=== PATIENT | male | born 1960 | race Asian ===

== ENCOUNTER 2023-10-23 14:38 | Outpatient (AMB) | payer OTHER, SELFPAY ==
--- NOTE | 2023-10-23 14:44 | A.OFFVIS_ITS ---
Intake Visit Reasons: urinary frequency Intake Note: NEW Patient presents today to established treatment for Urinary Frequency: Meds- None Allergies to Antibiotic- No Known Allergies Blood Thinner- None Nail Making Machine Setter Required: No Accompanied by: Self / Same As Patient Allergies tolterodine Allergy (Mild, Verified 10/23/23 15:09) Dry mouth metformin Adverse Reaction (Mild, Verified 10/23/23 15:08) Diarrhea empagliflozin [From Jardiance] Adverse Reaction (Verified 10/23/23 15:09) UTI'S HPI Comments Details: Sha is a 63 year old male who is here as a new patient evaluation for LUTS frequency, urgency, denies dysuria, denies hematuria. He states he has had these symptoms for over 20 years. He states he is not sure if anxiety or stress would exacerbate his symptoms. UA - leuk neg, blood neg. Bladder scan PVR 14 mL Instructed to avoid dietary irritants. Trial Myrbetriq. Renal US [facility] Medical History (Updated 11/25/23 @ 01:57 by Rich Talbot MD) Anemia Elevated liver enzymes HTN (hypertension) Pure hypercholesterolemia Chronic kidney disease Type 2 diabetes mellitus Surgical History (Updated 10/23/23 @ 14:52 by EVETTE Winters) No pertinent past surgical history Family History (Updated 10/23/23 @ 15:14 by EVETTE Winters) Father No problems noted. Mother No problems noted. Social History (Updated 10/23/23 @ 14:52 by EVETTE Winters) Alcohol intake: current Alcohol intake frequency: holidays/special occasions o nly Patient Tobacco Use Status: Never used Tobacco Review of Systems Const All systems reviewed & are unremarkable except as noted in HPI and below Reports no additional complaints Eyes Reports no additional complaints ENT Reports no additional complaints Card Reports no additional complaints Resp Reports no additional complaints GI Reports no additional complaints Reports as per HPI Musc Reports no additional complaints Skin/Breast Reports system reviewed and no additional complaints, except as documented Neuro Reports no additional complaints Psych Reports no additional complaints Endo Reports no additional complaints Patrick/Lymph Reports no additional complaints Aller/Immun Reports no additional complaints Physical Exam Const General: cooperative, healthy appearing and no acute distress Orientation/consciousness: patient oriented x3 HEENT Head: Yes normal to inspection, Yes normocephalic and Yes atraumatic Eyes Conjunctivae: conjunctivae normal Neck Neck: Yes normal visual inspection and Yes trachea midline Chest Chest palpation & inspection: normal inspection of the chest Resp Effort & Inspection: normal respiratory effort Cardio Rate: regular rate GI Inspection: Yes normal to inspection Skin General skin exam: no rashes or lesions noted Neuro General: patient oriented x3 Extrem General: No edema Psych Appearance: grossly normal Office Procedures Post Void Residual Post Residual Void Post Void Residual (PVR): 14 [id number] Void Residual by ultrasound Results AMB Urinalysis, Automated UA Leukoctes 0 Tanya/uL Last Edit by EVETTE Winters on 10/23/23 15:05 UA Nitrite Negative Last Edit by EVETTE Winters on 10/23/23 15:05 UA Urobilinogen 0.2 mg/dL Last Edit by EVETTE Winters on 10/23/23 15:0 5 UA Protein 15 mg/dL Last Edit by EVETTE Winters on 10/23/23 15:05 UA pH 6.0 Last Edit by EVETTE Winters on 10/23/23 15:05 UA Blood 0 Florentino/uL Last Edit by EVETTE Winters on 10/23/23 15:05 UA Specific [place] 1.015 Last Edit by EVETTE Winters on 10/23/23 15: 05 UA Ketone Positive Last Edit by EVETTE Winters on 10/23/23 15:05 5 mg/dL Ambrocio Heck 10/23/23 15:05 UA Bilirubin 0 mg/dL Last Edit by EVETTE Winters on 10/23/23 15:05 UA Glucose 100 mg/dL Last Edit by EVETTE Winters on 10/23/23 15:05 Results Reviewed Results Reviewed: Laboratory Last Values Urine pH (Auto) 6.0 10/23/23 15:04 Specific [place] (Auto) 1.015 10/23/23 15:04 Urine Protein (Auto) 15 mg/dL 10/23/23 15:04 Glucose (UA)(Auto) 100 mg/dL 10/23/23 15:04 Urine Ketones (Auto) Positive 10/23/23 15:04 Urine Blood (Auto) 0 Florentino/uL 10/23/23 15:04 Urine Nitrite (Auto) Negative 10/23/23 15:04 Urine Bilirubin (Auto) 0 mg/dL 10/23/23 15:04 Urine Urobilinogen (Auto) 0.2 mg/dL 10/23/23 15:04 Leukocyte Esterase (Auto) 0 Tanya/uL 10/23/23 15:04 Assessment & Plan Assessment & Plan (1) Urinary frequency: Code(s): R35.0 - Frequency of micturition Category: Medical (2) Urinary urgency: Code(s): R39.15 - Urgency of urination Category: Medical Plan: Instructed to avoid dietary irritants. Trial Myrbetriq. Renal US Plan The patient had an opportunity to ask questions regarding treatment plan. The patient expressed understanding and agreement with the above treatment plan. The patient is aware they should contact our office by phone for worsening of their current condition or the appearance of new symptoms. Compliance is encouraged with any medications and followup testing that is ordered. It is a privilege to be allowed the opportunity to participate in the urologic care of your patient. If you have any questions or concerns regarding treatment for the above conditions please do not hesitate to contact me. The office telephone contact is [phone]. This note is constructed in part using voice recognition software. While every effort has been made to ensure accuracy packaging coordinator errors may have been included. Yours sincerely, Rich Talbot MD Orders: Orders AMB Urinalysis Automated 10/23/23 Z13.9 - Encounter for screening, unspecified AMB Post Void Residual by ultrasound 10/23/23 N39.8 - Other specified disorders of urinary system US retroperitoneal comp 10/23/23 R35.0 - Frequency of micturition Medications: New mirabegron ER (Myrbetriq) 25 mg PO DAILY 30 tabs 2RF Patient Instructions: The patient had an opportunity to ask questions regarding treatment plan. The patient expressed understanding and agreement with the above treatment plan. The patient is aware they should contact our office by phone for worsening of their current condition or the appearance of new symptoms. Compliance is en couraged with any medications and followup testing that is ordered. It is a privilege to be allowed the opportunity to participate in the urologic care of your patient. If you have any questions or concerns regarding treatment for the above conditions please do not hesitate to contact me. The office telephone contact is [phone]. This note is constructed in part using voice recognition software. While every effort has been made to ensure accuracy packaging coordinator errors may have been included. Yours sincerely, Rich Talbot MD Coding Level of Care Code New Pt Level 3 (35097) Diagnoses Urinary frequency R35.0 Urinary urgency R39.15 CPT Codes Post Residual Void - PVR CPT Code: 78483-Ytil Void Residual by ultrasound ([id number])
== END 2023-10-23 15:27 | disposition home or self-care (01) ==
PROVIDERS: PCP Internal Medicine; Visit Provider Urology
DX: R35.0 Frequency of micturition (principal); R39.15 Urgency of urination
CPT/HCPCS: 99203

== ENCOUNTER → 2023-10-23 14:38 | Outpatient (BNVA) | payer OTHER, SELFPAY | PROVIDERS: PCP Internal Medicine; Visit Provider Urology | DX: R35.0 Frequency of micturition (principal); R39.15 Urgency of urination | CPT/HCPCS: 51798; 81003 ==

== ENCOUNTER 2023-12-03 12:09 | Outpatient (REF) | payer OTHER, SELFPAY ==
--- NOTE | ~2023-12-03 | US_ITS ---
EXAMINATION: US RETROPERITONEAL COMPLETE (RENAL) CLINICAL INFORMATION: Frequency of micturition. COMPARISON: None available. TECHNIQUE: Real-time imaging of the kidneys and bladder. FINDINGS: RIGHT KIDNEY: 8.1 x 4.4 x 6.5 cm (SAG x AP x TRV). The kidney is normal contour and echogenicity. Renal cortical thickness is normal. No calculi or focal parenchymal lesions. No hydronephrosis. LEFT KIDNEY: 8.1 x 4.3 x 4.3 cm (SAG x AP x TRV). The kidney is normal contour and echogenicity. Renal cortical thickness is normal. No renal calculi or hydronephrosis. 2.3 cm simple cyst in lower pole for which no imaging follow-up is recommended. BLADDER: Partially distended. Bilateral ureteral jets are demonstrated. Prevoid bladder volume is 78.0 mL. Postvoid bladder volume is 4.5 mL. ADDITIONAL FINDINGS: The prostate measures 34 mL. US/US retroperitoneal comp IMPRESSION: Enlarged prostate. No hydronephrosis. No significant post void residual. Small kidneys.
== END 2023-12-03 12:10 | disposition home or self-care (01) ==
LOC: HO.US 12:09
PROVIDERS: PCP Internal Medicine; Visit Provider Urology
DX: R35.0 Frequency of micturition (principal)
CPT/HCPCS: 76770

== ENCOUNTER 2023-12-16 11:34 | Outpatient (AMB) | payer OTHER, SELFPAY ==
--- NOTE | 2023-12-16 11:55 | A.OFFVIS_ITS ---
Intake Visit Reasons: 8w/US Intake Note: Patient presents today for US Results: Meds- Vesicare, stopped due to dry mouth Allergies to Antibiotic- No Known Allergies Blood Thinner- Aspirin Block Stacker Required: No Accompanied by: Self / Same As Patient Allergies tolterodine Allergy (Mild, Verified 12/16/23 11:57) Dry mouth metformin Adverse Reaction (Mild, Verified 12/16/23 11:57) Diarrhea empagliflozin [From Jardiance] Adverse Reaction (Verified 12/16/23 11:57) UTI'S Medication List - Last Reconciled 12/16/23 by Rich Talbot MD aspirin 81 mg PO DAILY blood sugar diagnostic (Accu-Chek Guide test strips) As directed glimepiride mg PO lancets (Accu-Chek Fastclix Lancet Drum) As directed lisinopril 20 mg PO DAILY metformin 1,000 mg PO BID metoprolol succinate ER 100 mg PO DAILY rosuvastatin 20 mg PO BEDTIME semaglutide (Ozempic) mg subcut vibegron (Gemtesa) 75 mg PO DAILY HPI Comments Details: 12/16/23--Sha is here in follow up, past medical history diabetes. he was initially evaluated on 10/23/23 for complaints of urinary frequency/urgency and I prescribed Myrbetriq 25 mg. Myrbetriq was not covered by insurance and vesicare was prescribed. He stopped vesicare due to SE of dry mouth. He states his PCP had samples of the Myrbetriq 25 in 50 mg he states that he did not notice a major improvement in his urinary symptoms. He describes his symptoms as bladder pain and urgency. I have discussed ev.aluation for interstitial cystitis with cystoscopy hydrodistention as well as other therapies for urinary frequency urgency syndrome to include sacral neuromodulation. I reviewed renal ultrasound results 12/03/23. Kidneys within normal limits small left renal cyst. Prostate mildly enlarged estimated volume 37 mL. Gemtesa 75 mg sent to the pharmacy. Follow-up in 3 months. Review of chart: 10/23/23--Sha is a 63 year old male who is here as a new patient evaluation for LUTS frequency, urgency, denies dysuria, denies hematuria. He states he has had these symptoms for over 20 years. He states he is not sure if anxiety or stress would exacerbate his symptoms. UA - leuk neg, blood neg. Bladder scan PVR 14 mL Instructed to avoid dietary irritants. Trial Myrbetriq. Renal US [facility] Medical History Anemia Elevated liver enzymes HTN (hypertension) Pure hypercholesterolemia Chronic kidney disease Type 2 diabetes mellitus Surgical History No pertinent past surgical history Family History Father No problems noted. Mother No problems noted. Social History Alcohol intake: current Alcohol intake frequency: holidays/special occasions only Patient Tobacco Use Status: Never used Tobacco Review of Systems Const All systems reviewed & are unremarkable except as noted in HPI and below Reports no additional complaints Eyes Reports no additional complaints ENT Reports no additional complaints Card Reports no additional complaints Resp Reports no additional complaints GI Reports no additional complaints Reports as per HPI Musc Reports no additional complaints Skin/Breast Reports system reviewed and no additional complaints, except as documented Neuro Reports no additional complaints Psych Reports no additional complaints Endo Reports no additional complaints Patrick/Lymph Reports no additional complaints Aller/Immun Reports no additional complaints Results AMB Urinalysis, Automated UA Leukoctes 0 Tanya/uL Last Edit by EVETTE Winters on 12/16/23 12:03 UA Nitrite Negative Last Edit by EVETTE Winters on 12/16/23 12:03 UA Urobilinogen 0.2 mg/dL Last Edit by EVETTE Winters on 12/16/23 12:0 3 UA Protein 15 mg/dL Last Edit by EVETTE Winters on 12/16/23 12:03 UA pH 6.0 Last Edit by EVETTE Winters on 12/16/23 12:03 UA Blood 0 Florentino/uL Last Edit by EVETTE Winters on 12/16/23 12:03 UA Specific [place] 1.015 Last Edit by EVETTE Winters on 12/16/23 12: 03 UA Ketone Positive Last Edit by EVETTE Winters on 12/16/23 12:03 5 mg/dL Ambrocio Heck 12/16/23 12:03 UA Bilirubin 0 mg/dL Last Edit by EVETTE Winters on 12/16/23 12:03 UA Glucose 250 mg/dL Last Edit by EVETTE Winters on 12/16/23 12:03 1+ Ambrocio Heck 12/16/23 12:03 Results Reviewed Results Reviewed: Laboratory Last Values Urine pH (Auto) 6.0 12/16/23 11:58 Specific [place] (Auto) 1.015 12/16/23 11:58 Urine Protein (Auto) 15 mg/dL 12/16/23 11:58 Glucose (UA)(Auto) 250 mg/dL 12/16/23 11:58 Urine Ketones (Auto) Positive 12/16/23 11:58 Urine Blood (Auto) 0 Florentino/uL 12/16/23 11:58 Urine Nitrite (Auto) Negative 12/16/23 11:58 Urine Bilirubin (Auto) 0 mg/dL 12/16/23 11:58 Urine Urobilinogen (Auto) 0.2 mg/dL 12/16/23 11:58 Leukocyte Esterase (Auto) 0 Tanya/uL 12/16/23 11:58 Renal ultrasound films reviewed 12/03/2023. Assessment & Plan Assessment & Plan (1) Urinary frequency: Code(s): R35.0 - Frequency of micturition Category: Medical (2) Urinary urgency: Code(s): R39.15 - Urgency of urination Category: Medical (3) Sensation of pressure in bladder area: Code(s): R39.89 - Other symptoms and signs involving the genitourinary system Category: Medical Plan Gemtesa 75 mg daily follow-up in 3 months. Orders: Orders AMB Urinalysis Automated Today Z13.9 - Encounter for screening, unspecified Medications: New vibegron (Gemtesa) 75 mg PO DAILY 30 tabs 5RF Patient Instructions: The patient had an opportunity to ask questions regarding treatment plan. The patient expressed understanding and agreement with the above treatment plan. The patient is aware they should contact our office by phone for worsening of their current condition or the appearance of new symptoms. Compliance is encouraged with any medications and followup testing that is ordered. It is a privilege to be allowed the opportunity to participate in the urologic care of your patient. If you have any questions or concerns regarding treatment for the above conditions please do not hesitate to contact me. The office telephone contact is [phone]. This note is constructed in part using voice recognition software. While every effort has been made to ensure accuracy patient support tech errors may have been included. Yours sincerely, Rich Talbot MD Coding Level of Care Code Est Pt Level 4 (72466) Diagnoses Urinary frequency R35.0 Urinary urgency R39.15 Sensation of pressure in bladder area R39.89
== END 2023-12-16 12:36 | disposition home or self-care (01) ==
PROVIDERS: PCP Internal Medicine; Visit Provider Urology
DX: R35.0 Frequency of micturition (principal); R39.15 Urgency of urination; R39.89 Other symptoms and signs involving the genitourinary system; Z13.9 Encounter for screening, unspecified
CPT/HCPCS: 99214

== ENCOUNTER → 2023-12-16 11:34 | Outpatient (BNVA) | payer OTHER, SELFPAY | PROVIDERS: PCP Internal Medicine; Visit Provider Urology | DX: R35.0 Frequency of micturition (principal); R39.15 Urgency of urination; R39.89 Other symptoms and signs involving the genitourinary system | CPT/HCPCS: 81003 ==

== ENCOUNTER 2024-04-30 08:03 | Outpatient (AMB) | payer OTHER, SELFPAY ==
--- NOTE | 2024-04-30 07:41 | A.OFFVIS_ITS ---
Intake Visit Reasons: 3m follow up Intake Note: Patient is present for 3m f/u Urology Medication:none Antibiotic Allergy:none Blood Thinner:aspirin Supervisor Gelatin Plant Required: No Allergies tolterodine Allergy (Mild, Verified 04/30/24 08:34) Dry mouth metformin Adverse Reaction (Mild, Verified 04/30/24 08:34) Diarrhea empagliflozin [From Jardiance] Adverse Reaction (Verified 04/30/24 08:34) UTI'S HPI Comments Details: 04/30/2024--Sha is a 64-year-old male here for follow-up for lower urinary tract symptoms of frequency urgency. He failed Myrbetriq and VESIcare, he was started on Gemtesa 75 mg daily. He states the gemtesa has made about a 15% improvement. He states he can void up to 25 times a day, including nighttime voids. However he states there are times during the day when he is engaged in an activity and will not get the urge to urinate for 4 hours. Again discussed option of sacral neuromodulation. Pt declined. Agrees to Pelvic floor PT. Will cont gemtesa. He states he gets PSA tested by his PCP. Review of chart: 12/16/23--Sha is here in follow up, past medical history diabetes. he was initially evaluated on 10/23/23 for complaints of urinary frequency/urgency and I prescribed Myrbetriq 25 mg. Myrbetriq was not covered by insurance and vesicare was prescribed. He stopped vesicare due to SE of dry mouth. He states his PCP had samples of the Myrbetriq 25 in 50 mg he states that he did not notice a major improvement in his urinary symptoms. He describes his symptoms as bladder pain and urgency. I have discussed ev.aluation for interstitial cystitis with cystoscopy hydrodistention as well as other therapies for urinary frequency urgency syndrome to include sacral neuromodulation. I reviewed renal ultrasound results 12/03/23. Kidneys within normal limits small left renal cyst. Prostate mildly enlarged estimated volume 37 mL. Gemtesa 75 mg sent to the pharmacy. Follow-up in 3 months. 10/23/23--Sha is a 63 year old male who is here as a new patient evaluation for LUTS frequency, urgency, denies dysuria, denies hematuria. He states he has had these symptoms for over 20 years. He states he is not sure if anxiety or stress would exacerbate his symptoms. UA - leuk neg, blood neg. Bladder scan PVR 14 mL Instructed to avoid dietary irritants. Trial Myrbetriq. Renal US [facility] Medical History Anemia Elevated liver enzymes HTN (hypertension) Pure hypercholesterolemia Chronic kidney disease Type 2 diabetes mellitus Surgical History No pertinent past surgical history Family History Father No problems noted. Mother No problems noted. Social History Alcohol intake: current Alcohol intake frequency: holidays/special occasions on ly Patient Tobacco Use Status: Never used Tobacco Review of Systems Const All systems reviewed & are unremarkable except as noted in HPI and below Reports no additional complaints Eyes Reports no additional complaints ENT Reports no additional complaints Card Reports no additional complaints Resp Reports no additional complaints GI Reports no additional complaints Reports as per HPI Musc Reports no additional complaints Skin/Breast Reports system reviewed and no additional complaints, except as documented Neuro Reports no additional complaints Psych Reports no additional complaints Endo Reports no additional complaints Patrick/Lymph Reports no additional complaints Aller/Immun Reports no additional complaints Results AMB Urinalysis, Automated UA Leukoctes 0 Tanya/uL Last Edit by SALAZAR Milligan on 04/30/24 08:58 UA Nitrite Negative Last Edit by SALAZAR Milligan on 04/30/24 08:58 UA Urobilinogen 0.2 mg/dL Last Edit by SALAZAR Milligan on 04/30/24 08:5 8 UA Protein 30 mg/dL Last Edit by SALAZAR Milligan on 04/30/24 08:58 UA pH 5.5 Last Edit by SALAZAR Milligan on 04/30/24 08:58 UA Blood 0 Florentino/uL Last Edit by SALAZAR Milligan on 04/30/24 08:58 UA Specific [place] 1.030 Last Edit by SALAZAR Milligan on 04/30/24 08: 58 UA Ketone Positive Last Edit by SALAZAR Milligan on 04/30/24 08:58 UA Bilirubin 1 mg/dL Last Edit by SALAZAR Milligan on 04/30/24 08:58 UA Glucose 0 mg/dL Last Edit by SALAZAR Milligan on 04/30/24 08:58 Results Reviewed Results Reviewed: Laboratory Last Values Urine pH (Auto) 5.5 04/30/24 08:57 Specific [place] (Auto) 1.030 04/30/24 08:57 Urine Protein (Auto) 30 mg/dL 04/30/24 08:57 Glucose (UA)(Auto) 0 mg/dL 04/30/24 08:57 Urine Ketones (Auto) Positive 04/30/24 08:57 Urine Blood (Auto) 0 Florentino/uL 04/30/24 08:57 Urine Nitrite (Auto) Negative 04/30/24 08:57 Urine Bilirubin (Auto) 1 mg/dL 04/30/24 08:57 Urine Urobilinogen (Auto) 0.2 mg/dL 04/30/24 08:57 Leukocyte Esterase (Auto) 0 Tanya/uL 04/30/24 08:57 Renal ultrasound films reviewed 12/03/2023. Date of Service: 12/03/23 US RETROPERITONEAL COMPLETE (RENAL) CLINICAL INFORMATION: Frequency of micturition. COMPARISON: None available. TECHNIQUE: Real-time imaging of the kidneys and bladder. FINDINGS: RIGHT KIDNEY: 8.1 x 4.4 x 6.5 cm (SAG x AP x TRV). The kidney is normal contour and echogenicity. Renal cortical thickness is normal. No calculi or focal parenchymal lesions. No hydronephrosis. LEFT KIDNEY: 8.1 x 4.3 x 4.3 cm (SAG x AP x TRV). The kidney is normal contour and echogenicity. Renal cortical thickness is normal. No renal calculi or hydronephrosis. 2.3 cm simple cyst in lower pole for which no imaging follow-up is recommended. BLADDER: Partially distended. Bilateral ureteral jets are demonstrated. Prevoid bladder volume is 78.0 mL. Postvoid bladder volume is 4.5 mL. ADDITIONAL FINDINGS: The prostate measures 34 mL. IMPRESSION: Enlarged prostate. No hydronephrosis. No significant post void residual. Small kidneys. Assessment & Plan Assessment & Plan (1) Urinary frequency: Code(s): R35.0 - Frequency of micturition Category: Medical (2) Urinary urgency: Code(s): R39.15 - Urgency of urination Category: Medical (3) Sensation of pressure in bladder area: Code(s): R39.89 - Other symptoms and signs involving the genitourinary system Category: Medical (4) Screening PSA (prostate specific antigen): Code(s): Z12.5 - Encounter for screening for malignant neoplasm of prostate Category: Medical Plan He states the gemtesa has made about a 15% improvement. He states he can void up to 25 times a day, including nighttime voids. However he states there are times during the day when he is engaged in an activity and will not get the urge to urinate for 4 hours. Again discussed option of sacral neuromodulation. Pt declined. Agrees to Pelvic floor PT. Will cont gemtesa. Orders: Orders PSA,Total (Free>4and<10) Today Z12.5 - Encounter for screening for malignant neoplasm of prostate AMB Urinalysis Automated Today Z13.9 - Encounter for screening, unspecified Referrals Pelvic Office Support Specialist Referral R39.15 - Urgency of urination Patient Instructions: The patient had an opportunity to ask questions regarding treatment plan. The patient expressed understanding and agreement with the above treatment plan. The patient is aware they should contact our office by phone for worsening of their current condition or the appearance of new symptoms. Compliance is encouraged with any medications and followup testing that is ordered. It is a privilege to be allowed the opportunity to participate in the urologic care of your patient. If you have any questions or concerns regarding treatment for the above conditions please do not hesitate to contact me. The office telephone contact is [phone]. This note is constructed in part using voice recognition software. While every effort has been made to ensure accuracy bellhop errors may have been included. Yours sincerely, Rich Talbot MD Coding Level of Care Code Est Pt Level 4 (99871) Diagnoses Urinary frequency R35.0 Urinary urgency R39.15 Sensation of pressure in bladder area R39.89 Screening PSA (prostate specific antigen) Z12.5
== END 2024-04-30 09:16 | disposition home or self-care (01) ==
LOC: HO.HUSH 08:04
PROVIDERS: PCP Internal Medicine; Visit Provider Urology
DX: R35.0 Frequency of micturition (principal); R39.15 Urgency of urination; R39.89 Other symptoms and signs involving the genitourinary system; Z12.5 Encounter for screening for malignant neoplasm of prostate; Z13.9 Encounter for screening, unspecified
CPT/HCPCS: 99214

== ENCOUNTER → 2024-04-30 08:03 | Outpatient (BNVA) | payer OTHER, SELFPAY | PROVIDERS: PCP Internal Medicine; Visit Provider Urology | DX: R35.0 Frequency of micturition (principal); R39.15 Urgency of urination; R39.89 Other symptoms and signs involving the genitourinary system | CPT/HCPCS: 81003 ==